=== PATIENT | female | born 1970 | race Caucasian/White ===

== ENCOUNTER 2018-08-29 20:43 | Emergency (ER) | payer BC, OTHER ==
--- NOTE | 2018-08-29 21:33 | PDOC ---
Rapid Medical Evaluation Medical Evaluation: Allergies Allergy/AdvReac Type Severity Reaction Status Date / Time nitrofurantoin Allergy Verified 04/23/18 23:42 [From Macrobid] 08/29/18 21:31 I have performed a brief in-person evaluation of this patient. The patient presents with a chief complaint of:RLQ pain with vaginal spotting. LMP 07/23/18 Pertinent physical exam findings:tender to RLQ on palpation I have ordered the following:urine , UA The patient will proceed to the ED for further evaluation.
[2018-08-29 21:35] VITALS: BP 130/75; PULSE 83; TEMP 98.2; BMI 32.1
[2018-08-29 22:05] LABS: URINE APPEARANCE CLEAR; URINE BILIRUBIN NEGATIVE (<2.0 mg/dL); URINE COLOR YELLOW; URINE GLUCOSE (UA) NEGATIVE (NEGATIVE); URINE KETONE NEGATIVE (NEGATIVE); URINE LEUK ESTERASE TRACE (NEGATIVE); URINE NITRITE NEGATIVE (NEGATIVE); URINE PROTEIN 1+ (NEGATIVE); URINE UROBILINOGEN NEGATIVE mg/dL (0.2-1.0)
[2018-08-29 22:06] LABS: HCG,QUALITATIVE URINE Negative
[2018-08-29 22:10] LABS: EPI CELLS RARE /HPF (FEW); URINE MUCUS MANY
--- NOTE | 2018-08-29 22:27 | PDOC ---
History of Present Illness - General Chief Complaint: Pain Stated Complaint: RIGHT SIDE PAIN Time Seen by Provider: 08/29/18 21:34 History Source: Patient Exam Limitations: No Limitations - History of Present Illness Initial Comments: 08/29/18 22:26 48 YOF with h/o abnormal PAP smear 6 mo ago, no f/u after that time, who p/w RLQ pain since yesterday and vaginal spotting off and on for the past 1-2 weeks , LMP on 07/23/18 as noted in RME. She is and h/o miscarriages never requiring antibiotics or other intervention. Also h/o right ovarian cyst detected on US a year ago. She states the pain is present when she moves or bends, radiates down the front/medial right thigh, no low back pain now. She took Aleve at work at noon with minimal relief. No f/c/n/v/d/c, night sweats, hot flashes, swollen lymph nodes, chest pain, SOB, lightheadedness, pallor, BOTELLO, dysuria, hematuria, vaginal discharge, etc. Past History - Past Medical History Allergies/Adverse Reactions: Allergies Allergy/AdvReac Type Severity Reaction Status Date / Time nitrofurantoin Allergy Verified 08/30/18 01:18 [From Macrobid] Home Medications: Ambulatory Orders Diphenhydramine HCl [Benadryl -] 25 mg PO Q8H #21 capsule 03/05/18 Phenazopyridine HCl [Pyridium -] 100 mg PO ASDIR 03/05/18 predniSONE [Deltasone -] 40 mg PO DAILY #8 tablet 03/05/18 Sulfamethoxazole/Trimethoprim [Bactrim Ds -] 1 tab PO BID #14 tablet 04/24/18 COPD: No - Suicide/Smoking/Psychosocial Hx Smoking History: Never smoked Review of Systems - Review of Systems Able to Perform ROS?: Yes Comments:: 08/29/18 22:43 GEN: no fever, chills, malaise, generalized weakness, or weight change HEENT: no ear pain, sore throat, vision change, or eye pain CV: no chest pain, palpitations, lightheadedness, syncope, or edema RESP: no cough, wheezing, or SOB GI: RLQ abdominal pain, no nausea, vomiting, diarrhea, constipation, or white/ black/bloody stool : vaginal bleeding, no dysuria, hematuria, incontinence, retention, or discharge MSK: no neck/back pain, muscle weakness/pain, or joint swelling/pain NEURO: no headache, seizure, vertigo, numbness, tingling, or focal weakness PSYCH: no substance use, no behavior change SKIN: no jaundice, no rash ROS otherwise negative except as noted in HPI *Physical Exam - Vital Signs Last Vital Signs Temp Pulse Resp BP Pulse Ox 98.2 F 83 19 130/75 100 08/29/18 21:33 08/29/18 21:33 12 21:33 08/29/18 21:33 08/29/18 21:33 - Physical Exam Comments: 08/29/18 22:43 GENERAL: well-appearing, A/Ox4, no distress, answers questions appropriately, pleasant HEENT: PERRLA, EOMI, moist mucous membranes NECK/BACK: no midline ttp, no spinal stepoff or deformity, no hematoma, full ROM , neck supple CARDIOVASCULAR: regular rate/rhythm, normal S1S2, no MGR, strong peripheral pulses, capillary refill <2 seconds, extremities wwp, no edema LUNGS/RESPIRATORY: no respiratory distress, CTAB GI/ABDOMEN: symmetric [id number], normoactive BS, soft, mild RLQ ttp, no midline pulsatile masses, no peritoneal signs : no CVA tenderness EXTREMITIES: no muscle atrophy, no acute deformity, no edema SKIN: warm and dry, no pallor, no jaundice, no rash, no bruising, no skin breakdown, no cuts, no lesions NEUROLOGICAL: GCS 15, CN II-XII grossly intact, 5/5 strength proximally and distally, no facial droop Moderate Sedation - Procedure Monitoring Vital Signs: Procedure Monitoring Vital Signs Temperature 98.2 F 08/29/18 21:33 Pulse Rate 83 08/29/18 21:33 Respiratory Rate 19 08/29/18 21:33 Blood Pressure 130/75 08/29/18 21:33 O2 Sat by Pulse Oximetry (%) 100 08/29/18 21:33 ED Treatment Course - LABORATORY CBC & Chemistry Diagram: 08/29/18 23:00 08/29/18 23:00 - ADDITIONAL ORDERS Additional order review: Laboratory Results 08/29/18 21:50 Urine Color Yellow Urine Appearance Clear Urine pH 6.0 Ur Specific Atwood 1.030 Urine Protein 1+ H Urine Glucose (UA) Negative Urine Ketones Negative Urine Blood 1+ H Urine Nitrite Negative Urine Bilirubin Negative Urine Urobilinogen Negative Ur Leukocyte Esterase Trace Urine WBC (Auto) 2 Urine RBC (Auto) 7 Ur Epithelial Cells Rare Urine Mucus Many Urine HCG, Qual Negative Medical Decision Making - Medical Decision Making 08/29/18 22:46 Adult female Pt p/w RLQ pain. VS: Exam: As noted in Physical Exam section. DDX IBNLT: UTI/pyelonephritis, renal colic, ovarian torsion, ovarian cyst, ectopic , PID, TOA, endometritis, salpingitis, oophoritis, Ricky-Hosea- Corby syndrome (if involving liver capsule ACS, AAA/AD, malignancy, hernia, cholecystitis, pancreatitis, gastritis, PUD, appendicitis, diverticulitis wwo abscess or perforation, colitis, regional ileitis (Crohns disease), SBO, bowel ischemia, bowel perforation, constipation, musculoskeletal, primary dysmenorrhea , endometriosis, fibroids, etc. W/U ordered: CBCD CMP Mg Phos Coags T&S GC/Chlam/trich NAAT (cervical swab), GC culture, TVUS TX ordered: None at this time (patient does not want pain meds) Labs: Reassessment: Repeat VS: ADMIT The Pts symptoms persist despite ED treatments. The Pt is unsafe for discharge at this time. They require further hospital observation, workup, and treatment. Microblog sent to [facility] for admission.Blank Decision to Admit order is placed per ED protocol. Spoke with admitting team security systems sales representative, in agreement Pt to be admitted.Decision to Admit order corrected with admitting team covering attendings name. DISCHARGE This patient has gotten significant relief of symptoms while in the ED.On last reassessment, vitals are wnl, pain is reasonably controlled, and exam is benign.Workup is not concerning for emergency-level pathology at this time.This patient is appropriate for discharge with close outpatient follow up. The Pt is comfortable with this plan and will follow up with their primary care provider in 1-3 days. She will take Motrin and/or Tylenol for pain. Specific return precautions are discussed and they will come back to the ER if necessary. *DC/Admit/Observation/Transfer Diagnosis at time of Disposition: Vaginal bleeding Abdominal pain Qualifiers: Abdominal location: unspecified location Qualified Code(s): R10.9 - Unspecified abdominal pain - Discharge Dispostion Disposition: HOME Condition at time of disposition: Stable Decision to Admit order: No - Referrals Referrals: Ritchie Jimenez MD [Primary Care Provider] - - Patient Instructions Additional Instructions: You were seen in the ER for abdominal pain and vaginal bleeding. We did an exam , imaging studies, and labs. We saw a few ovarian cysts on your ultrasound, but these are probably not new and there is no emergency concern with them. After our assessment, we do not believe you are having a medical emergency at this time, and we believe you are safe to go home. Please follow up with your primary care provider in 1-3 days. Call their clinic, tell them you were seen in the ER, and tell them you need a follow-up. Please follow up with your advisory application developer too. If you have any new or worsening symptoms, please come back to the ER at any time (24 hours a day). If you are having severe or life threatening symptoms, or symptoms that make it unsafe to drive or have someone drive you, please call 911. - Post Discharge Activity
[2018-08-29 23:06] LABS: BASO % 0.3 % (0-2.0); HEMATOCRIT 32.7 % (32.4-45.2); HEMOGLOBIN 11.3 GM/dL (10.7-15.3); LYMPH % 45.7 % (8-40); MCH 27.7 pg (25.7-33.7); MCHC 34.6 g/dl (32.0-36.0); MEAN CELL VOLUME 80.2 fl (80-96); MEAN PLT VOLUME 8.9 fl (7.5-11.1); MONO % 9.2 % (3.8-10.2); NEUT % 42.8 % (42.8-82.8); PLATELET COUNT 227 K/MM3 (134-434); RBC 4.08 M/mm3 (3.60-5.2)
--- NOTE | 2018-08-29 23:12 | PDOC ---
Attending Attestation - HPI HPI: 08/29/18 23:34 Patient is a 48YOF, A4, with a PMH of abnormal pap smear 6 months ago and right ovarian cyst diagnosed 1 year ago presenting with right lower quadrant pain and vaginal spotting for the past 3 days. Patient reports the right lower quadrant pain is worse with movement. Patient took Aleeve at 12PM with no relief. Patient denies hot flashes, fever, chills, nausea, and vomit. Allergies: Nitrofurantoin Surgeries: None reported Social history: No reported alcohol, drug or cigarette use. <Asia Godfrey - Last Filed: 08/29/18 23:34> - Resident Resident Name: Aimee Hays - ED Attending Attestation I have performed the following: I have examined & evaluated the patient, The case was reviewed & discussed with the resident, I agree w/resident's findings & plan - Physicial Exam PE: 08/31/18 21:34 Agree with resident exam. - Medical Decision Making 08/30/18 01:35 Patient Name: JULIO CERVANTES THIS IS A PRELIMINARY REPORT FROM [facility] DATE OF SERVICE: 2018-08-29 23:51:57 IMAGES: 61 EXAM: Pelvic ultrasound with Doppler study of the bilateral ovaries HISTORY: Right lower quadrant pain. COMPARISON: None. FINDINGS: The endometrium appears homogeneous but is slightly thickened at approximately 1.6 cm. Follow-up recommended to make sure returns to normal thickness and to exclude endometrial pathology. Multiple nabothian cysts are noted largest measures 2.3 cm x 1.8 cm x 2.2 cm. There is a 5 mm right ovarian follicular cyst. The right ovary is otherwise normal with positive Doppler blood flow. There is a 2.7 cm x 1.4 cm x 2.0 cm left ovarian cyst. The remainder of the left ovary is normal with positive Doppler blood flow. No free fluid. THIS DOCUMENT HAS BEEN ELECTRONICALLY SIGNED Pt stable to follow with her [facility] [facility] stable and she is ready for d/c home. <Elizabeth Alston - Last Filed: 08/31/18 21:35>
[2018-08-29 23:20] LABS: INR 1.04 (0.83-1.09); PROTHROMBIN TIME (PATIENT) 12.3 SEC (9.7-13.0)
[2018-08-29 23:49] LABS: ALBUMIN 3.6 g/dl (3.4-5.0); ALK PHOS 42 U/L (45-117); ANION GAP 8 MMOL/L (8-16); BILIRUBIN,TOTAL 0.2 mg/dL (0.2-1); BLOOD UREA NITROGEN 12 mg/dL (7-18); CHLORIDE 105 mmol/L (98-107); CO2 25 mmol/L (21-32); CREATININE 0.6 mg/dL (0.55-1.3); GLUCOSE,RANDOM 80 mg/dL (74-106); POTASSIUM 3.7 mmol/L (3.5-5.1); SGOT/AST 22 U/L (15-37); SGPT/ALT 31 U/L (13-61); SODIUM 138 mmol/L (136-145); TOT PROT 7.4 g/dl (6.4-8.2)
== END 2018-08-30 01:46 | disposition home or self-care (01) ==
LOC: JER 20:43 → JERFT 20:43 → JER 08-30 01:46
DX: N83.291 Other ovarian cyst, right side (principal); N83.202 Unspecified ovarian cyst, left side
CPT/HCPCS: 36415; 76830-TC; 80053; 81003; 81015; 84703; 85025; 85610; 86850; 86900; 86901; 99282-25

== ENCOUNTER 2020-06-15 04:23 | Day surgery (SDC) | payer BC, OTHER ==
[2020-06-14 17:25] VITALS: BMI 32.3
--- OUTSIDE RECORDS SUMMARY | 2020-06-15 04:26 | XMS ---
:1970 Author Organization [facility] Support Name Relationship Address Phone [facility] Unavailable [address] [place] [address] [facility] Unavailable [address] [phone] [place] [address] [address] [facility] [address] [place] [address] Re-disclosure Warning The records that you are about to access may contain information from federally- assisted alcohol or drug abuse programs. If such information is present, then the following federally mandated warning applies: This information has been disclosed to you from records protected by federal confidentiality rules (42 CFR part 2). The federal rules prohibit you from making any further disclosure of this information unless further disclosure is expressly permitted by the written consent of the person to whom it pertains or as otherwise permitted by 42 CFR part 2. A general authorization for the release of medical or other information is NOT sufficient for this purpose. The Federal rules restrict any use of the information to criminally investigate or prosecute any alcohol or drug abuse patient.The records that you are about to access may contain highly sensitive health information, the redisclosure of which is protected by Article 27-F of the [facility] Public Health law. If you continue you may haveaccess to information: Regarding HIV / AIDS; Provided by facilities licensed or operated by the [facility] Office of Mental Health; or Provided by the [facility] Office for People With Developmental Disabilities. If such information is present, then the following [facility] mandated warning applies: This information has been disclosed to you from confidential records which are protected by state law. State law prohibits you from making any further disclosure of this information without the specific written consent of the person to whom it pertains, or as otherwise permitted by law. Any unauthorized further disclosure in violation of state law may result in a fine or assisted sentence or both. A general authorization for the release of medical or other information is NOT sufficient authorization for further disclosure. Insurance Providers Payer name Policy type / Policy ID Covered Covered republican's Policy Plan Coverage type republican ID relationship to More Information more [facility] [id number] OUTPT 2 BC PPO [facility] HU [facility] [id number] Results ID Date Data Source [id number] 06/10/2020 04:00:00 PM EDT [facility] Name Value Range Interpretation Description Data Sup porting Code Source(s) Document(s ) SARS [facility] coronavirus 2 RNA This lab was ordered by [facility] and reported by [facility]. ID Date Data Source [id number] 05/16/2020 12:00:00 AM EDT [facility] Name Value Range Interpretation Code Description Data Maegan rce(s) Supporting Document(s ) 2018-nCoV [facility] RNA XXX SCOTT+probe- Imp This lab was ordered by ECTOR fernandez nd reported by [facility] ID Date Data Source [id number] 01/27/2020 12:00:00 AM EDT [facility] Name Value Range Interpretation Code Description Data Maegan rce(s) Supporting Document(s ) 2018-nCoV [facility] RNA XXX SCOTT+probe- Imp This lab was ordered by [facility] and reported by [facility] Procedure
[2020-06-15] MEDS ORDERED: ACETAMINOPHEN 325 MG TABLET (FP) PO PRN (10:31)
[2020-06-15] MEDS ORDERED: IBUPROFEN 400 MG TABLET (FP) PO PRN (10:31)
--- NOTE | 2020-06-15 10:31 | HP ---
Admitting History and Physical - Admission History of Present Illness: 49 yo with irregular bleeding, menorrhagia for hysteroscopy, D&C Limitations to Obtaining History: No Limitations - Past Medical History Cardiovascular: No: HTN Gastrointestinal: Yes: GERD ...LMP: 05/19/20 ...: No Heme/Onc: Yes: Anemia - Past Surgical History Additional Past Surgical History: C section LEEP - Smoking History Smoking history: Never smoked Have you smoked in the past 12 months: No - Alcohol/Substance Use History of Substance Use: reports: None Home Medications - Allergies Allergies/Adverse Reactions: Allergies Allergy/AdvReac Type Severity Reaction Status Date / Time nitrofurantoin Allergy Verified 06/14/20 17:19 [From Macrobid] - Home Medications Home Medications: Ambulatory Orders Multivitamins [Tab-A-Vit -] 1 tab PO DAILY 06/14/20 Family Medical History Family History: Denies Review of Systems - Review of Systems Constitutional: reports: No Symptoms Cardiovascular: reports: No Symptoms Respiratory: reports: No Symptoms Musculoskeletal: reports: No Symptoms Integumentary: reports: No Symptoms Neurological: reports: No Symptoms Endocrine: reports: No Symptoms Psychiatric: reports: No Symptoms Physical Examination Vital Signs: Vital Signs Temperature 97.5 F L 06/15/20 09:53 Pulse Rate 77 06/15/20 09:53 Respiratory Rate 20 06/15/20 09:53 Blood Pressure 137/86 06/15/20 09:53 O2 Sat by Pulse Oximetry (%) 99 06/15/20 09:53 Constitutional: Yes: Well Nourished, No Distress, Calm Respiratory: Yes: Regular, CTA Bilaterally Gastrointestinal: Yes: Soft Edema: No Assessment/Plan 49 yo with menorrhaiga, irregular bleeding for hystersocpy, dilation and curettage 1. Consents reviewed and signed, risks/benefits/alternatives and complications discussed including but not limited to infection, bleeding, damage to surrounding organs, uterine perforation 2. SCDs for DVT prophylaxis 3. No antibiotics necessary 4. Reviewed preop labs, COVID negative 5. Will proceed to OR
[2020-06-15] MEDS ORDERED: PROMETHAZINE HCL 25 MG/1 ML VIAL IVPUSH PRN (11:40)
[2020-06-15] MEDS ORDERED: ONDANSETRON 4 MG/2 ML VIAL IVPUSH PRN (11:40)
[2020-06-15] MEDS ORDERED: oxyCODONE HCL 5 MG TABLET PO PRN (11:40)
[2020-06-15] MEDS ORDERED: LACTATED RINGERS SOLUTION 1,000 ML IV SCH (11:45)
[2020-06-15] MEDS ORDERED: PROPOFOL 20 ML ONE (11:52)
[2020-06-15] MEDS ORDERED: MIDAZOLAM HCL 2 MG/2 ML SINGLE DOSE VIAL ONE (11:52)
[2020-06-15] MEDS ORDERED: LIDOCAINE HCL/PF 2% SDV 5ML VIAL ONE (12:04)
[2020-06-15] MEDS ORDERED: DEXAMETHASONE SOD PHOSPHATE 4 MG/1 ML VIAL ONE (12:08)
[2020-06-15] MEDS ORDERED: KETOROLAC TROMETHAMINE 30 MG/1 ML VIAL ONE (12:23)
--- NOTE | 2020-06-15 12:50 | OP ---
Operative Note - Note: Operative Date: 06/15/20 Pre-Operative Diagnosis: irregular menses Operation: hysteroscopy, dilation and curettage Findings: bilateral ostia visualized, polypoid endometrial tissue noted Post-Operative Diagnosis: Same as Pre-op Surgeon: Lynn Dawson Anesthesiologist/WAGON WINDER: Parish Aceves Anesthesia: General Estimated Blood Loss (mls): 5 Drains, Volume Out (mls): 50 (fluid deficit) Fluid Volume Replaced (mls): 300 Operative Report Dictated: Yes
--- NOTE | 2020-06-15 13:30 | OP ---
DATE OF OPERATION: 06/15/2020 SURGEON: Lance Dawson MD PREOPERATIVE DIAGNOSIS: Irregular menses. POSTOPERATIVE DIAGNOSIS: Irregular menses. PROCEDURE: Hysteroscopy, dilatation and curettage. ANESTHESIA: FLUIDS GIVEN: 300 mL. ESTIMATED BLOOD LOSS: 5 mL. FLUID DEFICIT: 15 mL. INDICATIONS: The patient is a 49-year-old with a history of irregular menses, heavy menses for hysteroscopy and D and C. The risks, benefits, alternatives, and complications of the procedure were discussed including infection, bleeding, damage to surrounding organs, uterine perforation. She expressed understanding and was brought to the operating room. DETAILS OF PROCEDURE: When anesthesia was found to be adequate, the patient was prepped and draped in the normal sterile fashion and placed in the dorsal lithotomy position in Michael stirrups. A weighted speculum was placed into the patient's posterior vagina. The anterior vagina was retracted using a Chawla retractor. Anterior lip of the cervix was grasped using Allis clamps. The cervix found to be dilated. Hysteroscope was placed. Sessile polypoid tissue was noted in the endometrial cavity. The hysteroscope was then removed. Gentle sharp curetting was performed. All instruments were removed from the patient's vagina. The patient was awakened from anesthesia and brought to the recovery room in stable condition. LANCE DAWSON M.D. [id number]
[2020-06-15 15:10] VITALS: BP 125/54; PULSE 70; TEMP 98
--- NOTE | 2020-06-20 16:35 | PATH ---
Surgical Pathology Report Patient Name: JULIO CERVANTES [facility]. Rec. #: [id number] /Age/Gender: 1970 (Age: 49) / F Account: [id number] Location: [facility] SURGICAL Taken: 06/15/2020 Received: 06/15/2020 Reported: 06/20/2020 Physicians: Lynn Dawson Specimen(s) Received ENDOMETRIAL CURETTINGS Clinical History Irregular menstruation Final Diagnosis ENDOMETRIAL CURETTINGS: FRAGMENTS OF SECRETORY TYPE ENDOMETRIUM. SEPARATE FRAGMENTS OF SQUAMOUS EPITHELIUM WITH JUAN 3 (CERVICAL INTRAEPITHELIAL NEOPLASIA, GRADE 3). SEE COMMENT. Comment: Immunohistochemical stains show strong block positivity of p16 and an increase in Ki-67 expression in the full thickness of the lesion, support the diagnosis of JUAN 3. Immunohistochemistry stains p16 and Ki-67 performed at [place], [place] ([id number]) interpreted at [facility]. Positive and negative controls (internal if applicable) show appropriate results. Intradepartmental case reviewed with accordance on diagnosis, 06/20/2020. Electronically Signed Iwona Worrell M.D. Addendum Reported: 06/21/2020 Addendum Diagnosis This case was discussed with Dr. Dawson on 06/21/2020. Iwona Worrell M.D. Gross Description Received in formalin labeled "endometrial curettings," is a 4.3 x 3.0 x 0.4 cm aggregate of olson red soft tissue fragments. The formalin is filtered and the specimen is entirely submitted in 3 cassettes. DL/06/15/2020 saudi/06/15/2020
== END 2020-06-15 15:53 | disposition home or self-care (01) ==
LOC: JASU-SURG 04:23
PROVIDERS: ATTEND Obstetrics & Gynecology
PROC: 0UDB7ZX Extraction of Endometrium, Via Natural or Artificial Opening, Diagnostic (ICD-10-PCS; principal; 2020-06-15 11:00)
PROC: 0UJD8ZZ Inspection of Uterus and Cervix, Via Natural or Artificial Opening Endoscopic (ICD-10-PCS; 2020-06-15 11:00)
DX: N92.6 Irregular menstruation, unspecified (principal)
CPT/HCPCS: 84703; 88305-TC; 94760

== ENCOUNTER 2020-10-24 04:42 | Day surgery (SDC) | payer BC, OTHER ==
[2020-10-19 13:02] VITALS: BMI 31.4
[2020-10-24] MEDS ORDERED: SUCCINYLCHOLINE CHLORIDE 200 MG/10 ML SYRINGE ONE (07:45)
[2020-10-24] MEDS ORDERED: MIDAZOLAM HCL 2 MG/2 ML SINGLE DOSE VIAL ONE (07:45)
[2020-10-24] MEDS ORDERED: PROPOFOL 20 ML ONE ×2 (07:45)
[2020-10-24] MEDS ORDERED: IBUPROFEN 400 MG TABLET (FP) PO PRN (08:23)
[2020-10-24] MEDS ORDERED: ACETAMINOPHEN 325 MG TABLET (FP) PO PRN (08:23)
[2020-10-24] MEDS ORDERED: ONDANSETRON 4 MG/2 ML VIAL IVPUSH PRN (08:24)
[2020-10-24] MEDS ORDERED: VASOPRESSIN 20 UNITS/ML VIAL IV ONE (08:35)
[2020-10-24] MEDS ORDERED: DEXAMETHASONE SOD PHOSPHATE 4 MG/1 ML VIAL ONE (08:36)
[2020-10-24] MEDS ORDERED: KETOROLAC TROMETHAMINE 30 MG/1 ML VIAL ONE (08:48)
[2020-10-24] MEDS ORDERED: oxyCODONE HCL 5 MG TABLET PO PRN (09:42)
[2020-10-24] MEDS ORDERED: LACTATED RINGERS SOLUTION 1,000 ML IV SCH (09:45)
[2020-10-24 11:14] VITALS: TEMP 97.2
[2020-10-24] MEDS ORDERED: ONDANSETRON 4 MG/2 ML VIAL ONE (11:16)
[2020-10-24 13:16] VITALS: BP 113/69; PULSE 69
== END 2020-10-24 14:47 | disposition home or self-care (01) ==
LOC: JASU-SURG 04:42
PROVIDERS: ATTEND Obstetrics & Gynecology
PROC: 0UBC7ZX Excision of Cervix, Via Natural or Artificial Opening, Diagnostic (ICD-10-PCS; principal; 2020-10-24 08:00)
DX: D06.7 Carcinoma in situ of other parts of cervix (principal)
CPT/HCPCS: 36415; 84703; 86850; 86900; 86901; 88307-TC; 94760

== ENCOUNTER 2023-02-25 20:51 | Emergency (ER) | payer BC, OTHER ==
[2023-02-25 20:55] VITALS: BP 119/70; PULSE 84; RESP 17; TEMP 97.9; BMI 31.1
[2023-02-25 21:34] LABS: PH,URINE 5.5 (5.0-8.0); URINE APPEARANCE CLEAR; URINE BILIRUBIN NEGATIVE (NEGATIVE); URINE COLOR YELLOW; URINE GLUCOSE (UA) NEGATIVE (NEGATIVE); URINE KETONE NEGATIVE (NEGATIVE); URINE LEUK ESTERASE NEGATIVE (NEGATIVE); URINE NITRITE NEGATIVE (NEGATIVE); URINE PROTEIN NEGATIVE (NEGATIVE); URINE UROBILINOGEN 0.2 mg/dL (0.2-1.0)
[2023-02-25] MEDS ORDERED: LIDOCAINE PATCH REMOVAL MC SCH (22:00)
[2023-02-25] MEDS ORDERED: LIDOCAINE 5% TOPICAL PATCH TP ONE (22:23)
[2023-02-25] MEDS ORDERED: CYCLOBENZAPRINE HCL 10 MG TABLET (FP) PO ONE (22:23)
[2023-02-25] MEDS ORDERED: IBUPROFEN 600 MG TABLET (FP) PO ONE ×2 (22:24→22:27)
[2023-02-25] MEDS ORDERED: CYCLOBENZAPRINE HCL 10 MG TABLET (FP) ONE (22:24)
[2023-02-25] MEDS ORDERED: LIDOCAINE 5% TOPICAL PATCH ONE (22:24)
== END 2023-02-25 22:29 | disposition home or self-care (01) ==
LOC: JERFT 20:51
DX: S39.012A Strain of muscle, fascia and tendon of lower back, initial encounter (principal); X50.1XXA Overexertion from prolonged static or awkward postures, initial encounter
CPT/HCPCS: 81003; 87086; 99283-25

== ENCOUNTER 2024-01-07 09:29 | Emergency (ER) | payer BC, OTHER ==
[2024-01-07 09:52] VITALS: BP 111/70; PULSE 70; RESP 18; TEMP 98.2; BMI 31.1
[2024-01-07] MEDS ORDERED: ACETAMINOPHEN INJECTION 100 ML IVPB ONE (10:59)
[2024-01-07] MEDS ORDERED: METOCLOPRAMIDE HCL INJECTION 10 MG/2 ML VIAL ONE (10:59)
[2024-01-07] MEDS: METOCLOPRAMIDE HCL INJECTION 10 MG/2 ML VIAL IVPUSH ONE (11:05)
[2024-01-07] MEDS: SODIUM CHLORIDE 1,000 ML IV STA (11:05)
[2024-01-07] MEDS: ACETAMINOPHEN 1000 MG/100 ML BAG IVPB ONE (11:05)
== END 2024-01-07 13:10 | disposition home or self-care (01) ==
LOC: JERFT 09:29
PROC: 3E030NZ Introduction of Analgesics, Hypnotics, Sedatives into Peripheral Vein, Open Approach (ICD-10-PCS; principal; 2024-01-07)
PROC: 3E030GC Introduction of Other Therapeutic Substance into Peripheral Vein, Open Approach (ICD-10-PCS; 2024-01-07)
PROC: 3E0337Z Introduction of Electrolytic and Water Balance Substance into Peripheral Vein, Percutaneous Approach (ICD-10-PCS; 2024-01-07)
DX: G43.909 Migraine, unspecified, not intractable, without status migrainosus (principal); R11.0 Nausea; R42 Dizziness and giddiness
CPT/HCPCS: 99284-25; J0131

== ENCOUNTER 2025-05-08 19:24 | Emergency (ER) | payer BC ==
[2025-05-08 19:30] VITALS: BP 126/86; PULSE 68; RESP 20; TEMP 97.9; BMI 30.9
== END 2025-05-08 23:25 | disposition home or self-care (01) ==
LOC: JERFT 19:24 → JER 19:24
DX: M65.311 Trigger thumb, right thumb (principal)
CPT/HCPCS: 73130-TC-RT-FY; 99283-25